=== PATIENT | male | born 1980 | race African-American/Black ===

== ENCOUNTER 2022-07-26 07:45 | Emergency (ER) | payer OTHER, SELFPAY ==
[2022-07-26 07:49] VITALS: BP 147/105; PULSE 92; RESP 16; TEMP 36.7; O2SAT 99; BMI 23.5
--- NOTE | 2022-07-26 08:03 | ED_ITS ---
HPI - Allergic Reaction General Chief complaint: Allergic Reaction Stated complaint: Allergic reaction Time Seen by Provider: 07/26/22 08:00 Source: patient Mode of arrival: ambulatory Limitations: no limitations History of Present Illness HPI narrative: 42 yo male started upper lip swelling significant after starting lisinopril. No prior allergic reactions - the patient has no airway involvement. He tried benadryl without relief. Started around 11pm. complaint: facial swelling Onset (ago): hour(s) (started at 11pm) Exposure: medication (lisinopril) Symptoms: lip swelling Severity: severe Treatment prior to arrival: benadryl Previous Allergic Reaction History: none Related Data Previous Rx's Medication Instructions Recorded amlodipine 5 mg tablet 5 mg PO DAILY #30 tabs 07/26/22 hydrochlorothiazide 25 mg tablet 25 mg PO DAILY #30 tabs 07/26/22 prednisone 20 mg tablet 40 mg PO DAILY 5 days #10 tabs 07/26/22 Allergies Allergy/AdvReac Type Severity Reaction Status Date / Time lisinopril Allergy Severe Angioedema Uncoded 07/26/22 08:00 Review of Systems Review of Systems: Constitutional : No Fever, No Chills ENT/Mouth : positive lip swelling, No Hoarseness, No Swallowing Difficulty Eyes: No Eye Pain, No Swelling, No Redness Cardiovascular : No Chest Pain, No SOB Respiratory : No Cough, No Sputum, No Wheezing, No Smoke Exposure, No Dyspnea Gastrointestinal : No Nausea, No Vomiting, No Diarrhea, No abdominal Pain Genitourinary : No Dysuria, No Urinary Frequency, No Hematuria Musculoskeletal : No joint pain, No Myalgias, No Joint Swelling Skin : No Skin Lesions, no rash Neuro : No Weakness, No Numbness, No Headache Psych : No Anxiety/Panic, No Depression Heme/Lymph: No Bruising, No Lymphadenopathy Endocrine : No Polyuria, No Polydipsia All other systems reviewed and are negative [facility] Past Medical History Attestation statement: The following information was validated with the patient. Medical History HTN (hypertension) Social History Social History (Updated 07/26/22 @ 08:07 by Jenelle Fischer DO) Patient Tobacco Use Status: Tobacco use Unknown Advance Directives: No Advance Directives Information Provided: Yes Physical Exam ED Vital Signs: Vital Signs - 24 hr 07/26/22 07:49 07/26/22 08:21 07/26/22 09:04 Temperature 98.1 F Pulse Rate 92 88 90 Respiratory Rate 16 16 18 Blood Pressure 147/105 H 146/86 H 146/96 H Pulse Oximetry 99 100 100 Oxygen Delivery Method Room Air Room Air Room Air 07/26/22 10:00 Temperature Pulse Rate 87 Respiratory Rate 22 H Blood Pressure Pulse Oximetry 99 Oxygen Delivery Method Room Air BMI result Body Mass Index 23.5 Appearance: Alert. Oriented X3. No acute distress. Eyes: Pupils equal, round and reactive to light. ENT: Pharynx normal. no intraoral swelling, tolerating secretions, no stridor normal voice, significant swelling to the upper lip Neck: Normal inspection. Neck supple. CVS: Normal heart rate and rhythm. Pulses normal. Respiratory: No respiratory distress. Breath sounds normal. Abdomen: Soft and nontender. Skin: Skin warm and dry. Normal skin color. Normal skin turgor. Extremities: No lower extremity edema. No calf ttp Neuro: Oriented X 3. No motor deficit. No sensory deficit. Course Course Course Narrative: will switch to HCTZ 25mg and amlodipine 5mg no airway progression minimal improvement has been going on 12 hours without airway involvement given precautions to return isolated to upper lip only observation for 4 hours stable no progression isolated to upper lip - given precautions to call 911 MDM - Allergic Reaction MDM Narrative Medical decision making narrative: 42 yo male with hx of HTN started on lisinopril/HCTZ - last night was at work and noted upper lip started to swelling it has worsened throughout the night, took 2 doses of benadryl 25mg without relief. This has never happened to him before. No other new exposures. At this time will attempt epi, steroids, benadryl - I did discuss FFP. Area is isolated to the upper lip only with no airway involvement. The patient and partner are well aware he can no longer take lisinopril for the rest of his life Critical Care Time Critical Care Time Critical Care Time: Yes Total Critical Care Time: 35 Attestation: IM epi, angioedema treatment, reassessments I attest to this time spent taking care of the patient Discharge Plan Discharge Clinical Impression: Angioedema Qualifiers: Encounter type: initial encounter Qualified Code(s): T78.3XXA - Angioneurotic edema, initial encounter Patient Disposition: Home, Self-Care Instructions: Angioedema (ED) Additional Instructions: return to ED for any worsening symptoms or concerns call 911 for any swelling inside the mouth, difficulty breathing you can never take lisinopril again Prescriptions: New amlodipine 5 mg tablet 5 mg PO DAILY Qty: 30 0RF prednisone 20 mg tablet 40 mg PO DAILY 5 Days Qty: 10 0RF hydrochlorothiazide 25 mg tablet 25 mg PO DAILY Qty: 30 0RF Stand Alone Forms: Work/School Release
[2022-07-26] MEDS: EPINEPHrine 1 MG/ML VIAL 0.3 MG IM (08:06)
[2022-07-26] MEDS: Famotidine/PF 20 MG/2 ML VIAL IVPUSH (08:09)
[2022-07-26] MEDS: diphenhydrAMINE HCL 50 MG/ML VIAL 25 MG IVPUSH (08:09)
[2022-07-26] MEDS: methylPREDNISolone Sod Succ 125 MG/2 ML VIAL IVPUSH (08:11)
[2022-07-26 08:21] VITALS: BP 146/86; PULSE 88; RESP 16; O2SAT 100
[2022-07-26 09:04] VITALS: BP 146/96; PULSE 90; RESP 18; O2SAT 100
[2022-07-26 10:00] VITALS: PULSE 87; RESP 22; O2SAT 99
== END 2022-07-26 12:19 | disposition home or self-care (01) ==
PROVIDERS: Emergency Provider Emergency Medicine; PCP Ophthalmology
DX: K13.0 Diseases of lips (principal); T78.40XA Allergy, unspecified, initial encounter; X58.XXXA Exposure to other specified factors, initial encounter; Z79.899 Other long term (current) drug therapy
CPT/HCPCS: 96372; 96374; 96375; 99284; J0171; J1200; J2930